=== PATIENT | female | born 1940 | race Caucasian/White ===

== ENCOUNTER 2016-07-17 17:15 | Observation (INO) | payer OTHER ==
--- NOTE | ~2016-07-17 | HP ---
History And Physical [place] [id number] [facility] [place]. [address] NAME: DAVID RAMOS : 40 STATUS : ADM [place] PAT#: [id number] AGE: 75 ADM/REG DATE : 07/17/16 MR#: [id number] REPORT SERV DATE: 07/18/16 DICTATED BY: SHEY HENRIQUEZ DATE: 07/18/16 REPORT STATUS : Draft TRANSCRIBED BY: STEPH DATE: 07/18/16 DATE OF ADMISSION: 07/17/2016 ADMIN SECRETARY: Rico Thurston M.D. CHIEF COMPLAINT: Dyspnea and chest pressure, sudden onset. HISTORY OF PRESENT ILLNESS: A very pleasant, 75-year-old, white female with known history of CAD and multiple interventions with PTCA and multiple stents to multiple vessels. The patient most recently underwent a cardiac catheterization for chest pain, 06/[address] Gonzales revealing a focal 50-60% narrowing in the mid LAD at takeoff of prominent septal ply cutter with iFR of 0.93 and FFR of 0.82 to be managed medically with patent stents to her LAD, OM4, and RCA, EF 55% with a 1.5 mm ramus with 75% lesion to be managed medically. EF 55%. The patient states she has recently undergone right lumpectomy chemotherapy and most recently currently undergoing radiation treatments for breast cancer to her right breast. She has 2 radiation treatments scheduled for Tuesday and Tuesday of next week. She reports that she felt fine after her most recent treatment on Tuesday although she reports that she thinks her radiation treatments were longer and more intense than usual. On 07/17 she had a meeting at [facility] around 1000 hours and at 1200 hours she developed chest pressure that radiated up into her throat that was quite intense with significant shortness of breath. She did take one nitroglycerin at the meeting with some improvement and when she returned home, took aspirin and 2 additional nitroglycerin with improvement in her symptoms. She reports some associated nausea and dizziness as well. Denies diaphoresis or belching. She did call EMS. She was transported here. She states that the chest discomfort became progressively worse throughout the day but she was able to sleep last night. She denies receiving Adriamycin for her chemotherapy although she is unclear what other medications she received. She reports shortness of breath and difficulty swallowing. She feels many of these symptoms are dissimilar and more intense than her previous cardiac events. She did read about the side effects with radiation and feels that many of these may be related to her recent treatments. She reports her chest pain as being an 8/10 and remains an 8/10 with a deep breath or any inhalation for exam. Her symptoms were improved with nitroglycerin but not fully relieved. The patient denies any personal history of myocardial infarction, stroke, DVT, or pulmonary embolus. The patient was treated for bronchitis in 06/2016. Denies palpitations. No syncopal episodes. Denies PND, orthopnea. PAST MEDICAL HISTORY: 1. CAD. a. Multiple stents to LAD, RCA, and left circumflex. b. 06/2015 cath with focal 50-60% narrowing in mid LAD at takeoff of prominent septal ply cutter with iFR 0.93 and FFR of 0.82 to be managed medically with patent stents to the mid and distal LAD, OM4, and RCA. 2. Hypertension. History And Physical [address] [address] NAME: DAVID RAMOS : 40 STATUS : ADM [place] PAT#: [id number] AGE: 75 ADM/REG DATE : 07/17/16 MR#: [id number] REPORT SERV DATE: 07/18/16 DICTATED BY: SHEY HENRIQUEZ DATE: 07/18/16 REPORT STATUS : Draft TRANSCRIBED BY: STEPH DATE: 07/18/16 3. Dyslipidemia. 4. Anxiety. 5. Right breast cancer, status post right lumpectomy, chemotherapy, currently undergoing radiation therapy. 6. Positive family history for early CAD. PAST SURGICAL HISTORY: 1. Right lumpectomy. 2. Left hand surgery. 3. Hysterectomy. 4. Tonsillectomy. 5. Cataract surgery. SOCIAL HISTORY: She is . 07/2014. She has three children. She is retired, has not been as active given her recent diagnosis of breast cancer and with subsequent treatment. Denies history of tobacco, alcohol or illicit's. FAMILY HISTORY: Father at the age of 38 of a heart attack. Mother of a ruptured aortic aneurysm at 67. Brother with heart attack at 60, in his 70s of cancer. REVIEW OF SYSTEMS: A 14-point review of systems performed, significant for HPI including multiple bruises and eschar on right posterior hand. No other contributory diagnoses identified. ALLERGIES: FENTANYL NAUSEA. VERSED NAUSEA. HOME MEDICATIONS: Xanax 0.25 mg daily p.r.n., Norvasc 5 mg nightly, Refresh drops, vitamin C 1000 mg daily, aspirin 81 mg daily, atorvastatin 40 mg nightly, vitamin B tablet daily, FiberCon daily, Tums p.r.n., vitamin D3 1000 units daily, Plavix 75 mg daily, CoQ10 100 mg daily, Flonase spray p.r.n., glucosamine chondroitin daily, isosorbide 60 mg daily, acidophilus daily, lisinopril/HCTZ 20/12.5 daily, Mag-Ox 400 mg nightly, melatonin 5 mg nightly, Lopressor 12.5 mg twice daily, nitroglycerin p.r.n., Zoloft 75 mg daily, flaxseed oil 1200 mg daily, melatonin spray topically, vitamin A 8000 units daily. PHYSICAL EXAMINATION: VITAL SIGNS: Blood pressure 141/57, pulse 96, respirations 17, temperature 98.8, O2 saturation 95% on room air, height 5 feet 2 inches, weight 122 pounds, BMI 22. GENERAL: Cooperative, in no apparent distress. HEENT: Pupils 2 mm, sclera nonicteric. Nares patent. Moist mucous membranes. No xanthelasma. NECK: Trachea midline, no thyromegaly. No JVD. No bruits. LYMPH: No cervical lymphadenopathy. No supraclavicular lymphadenopathy. RESPIRATORY: Unlabored respirations. Breath sounds clear bilaterally to posterior auscultation. No wheezes or rhonchi. 8/10 chest pain with deep inspiration. CARDIOVASCULAR: Regular rate. No murmur, rub or gallop appreciated. Extremities without edema. Pulses 2+ bilaterally. ABDOMEN: Soft, nontender, nondistended, normal bowel sounds auscultated throughout. No History And Physical [address] [address] NAME: DAVID RAMOS : 40 STATUS : ADM [place] PAT#: [id number] AGE: 75 ADM/REG DATE : 07/17/16 MR#: [id number] REPORT SERV DATE: 07/18/16 DICTATED BY: SHEY HENRIQUEZ DATE: 07/18/16 REPORT STATUS : Draft TRANSCRIBED BY: STEPH DATE: 07/18/16 organomegaly. SKIN: Warm, dry extremities. No pallor, or cyanosis. PSYCHIATRIC: Appropriate affect. Alert, oriented x3. LABORATORY DATA: Troponin less than 0.02 twice. Potassium 3.9, BUN 23, creatinine 0.70, glucose 99, magnesium 2.3. WBC 7.3, hemoglobin 13.1, hematocrit 38.9, platelet count 155,000. EKG, sinus rhythm with nonspecific ST segments. Echo, 02/2016: EF 64%. Mild diastolic dysfunction. Cath 06/2015 ([facility]): Focal narrowing 50-60% in LAD at large septal ply cutter with iFR of 0.93 and FFR of 0.82 with patent stents to LAD, OM-4 and RCA, EF 55%. ASSESSMENT AND PLAN: 1. Chest pressure in patient with multiple risk factors. Recent breast cancer and off Plavix for lumpectomy. Patient has been observed in the CPOU. Two sets of troponin negative. EKG stable. Patient will be held n.p.o. for probable MPI versus cath in the morning. We will discuss with rounding physician. She reports her symptoms are dissimilar to previous cardiac events. Further recommendations forthcoming. 2. Shortness of breath and chest pain. Check a CTA of chest given recent breast cancer history and echocardiogram in the morning. 3. Coronary artery disease. Continue home medications. 4. Hypertension. Monitor blood pressure. Continue home medications. 5. Dyslipidemia. Continue statin. 6. Upcoming trip for wedding in [facility] in one to two weeks if patient discharged from hospital. The patient was encouraged to remain well hydrated and remain active during plane flight and activities in [facility]. HILARIA/STEPH LA Tapai, HUMAN RESOURCES GENERALIST-BC / [id number] CC: LA Tapia, HUMAN RESOURCES GENERALIST-BC Sonia Cardenas Jr., M.D.
[2016-07-17 15:52] LABS: BASOPHILS 0.1 %; BASOPHILS ABSOLUTE 0.01 10/3/uL (0.0-0.16); EOSINOPHILS 1.5 %; EOSINOPHILS ABSOLUTE 0.11 10/3/uL (0.0-0.53); HEMOGLOBIN 13.1 g/dL (12.0-16.0); IMMATURE GRANULOCYTES 0.1 %; IMMATURE GRANULOCYTES ABSOLUTE 0.01 10/3/uL (0.0-0.11); LYMPHOCYTES 6.6 %; LYMPHOCYTES ABSOLUTE 0.48 10/3/uL (0.67-4.30); MEAN CORPUS HGB CONC 33.7 g/dL (32.0-36.0); MEAN CORPUSCULAR HEMOGLOB 30.3 pg (26.0-34.0); MEAN CORPUSCULAR VOLUME 89.8 fL (80-100); MEAN PLATELET VOLUME 11.6 fL (9.2-13.0); MONOCYTES 5.6 %; MONOCYTES ABSOLUTE 0.41 10/3/uL (0.21-1.20); NEUTROPHILS 86.1 %; NEUTROPHILS ABSOLUTE 6.24 10/3/uL (2.02-8.40); PLATELET COUNT 155 10/3/uL (150-400); RED CELL COUNT 4.33 10/6/uL (4.0-5.6)
[2016-07-17 15:53] LABS: HEMATOCRIT 38.9 % (36.0-48.0); RBC DISTRIBUTION WIDTH 13.1 % (12.0-16.0); WHITE BLOOD CELLS 7.3 10/3/uL (4.5-10.5)
[2016-07-17 15:54] LABS: MANUAL DIFF NO %
[2016-07-17 16:01] LABS: PROTIME (NOT ORD) 13.4 SEC (12.0-14.5)
[2016-07-17 16:14] LABS: CALCIUM, SERUM 9.1 MG/DL (8.5-10.4); CHEST PAIN PROFILE TAT 0 Hrs 27 Mins; CHLORIDE, SERUM 106 MMOL/L (96-112); CO2 (CARBON DIOXIDE) 26 MMOL/L (24-34); GFR AFRICAN AMERICAN 98 ML/MIN (>=60); GFR NON AFRICAN AMERICAN 85 ML/MIN (>=60); GLUCOSE, SERUM 99 MG/DL (60-99); POTASSIUM, SERUM 3.9 MMOL/L (3.5-5.3); SODIUM, SERUM 142 MMOL/L (135-148); TROPONIN I <0.02 NG/ML (<0.05)
[2016-07-17 16:15] LABS: BUN (BLOOD UREA NITROGEN) 23 MG/DL (6-23)
[~2016-07-17 17:15] MED LIST: ACIDOPHILU1 PO; ACIDOPHILU2 PO; ASAB PO; BL FLAX SEED1000 MG PO; CALGLUCTAB PO; CO Q-10100 MG PO; COQ10100 MG PO; COSAMIN DS1 TAB PO; FIBERCON PO; FLAXSEED OIL PO; FLONASE NAS; FOLIC ACID PO; GLUCCHONDR PO; HAWTHORN BERRY PO; IMDUR60 PO; ISMO20 MG PO; LIPITOR40 PO; LOP25 PO; MAGNESIUM W/ZINC PO; MAGOX4 PO; MELATONIN TOP; MELATONIN1 M1 PO; MELATONIN5 M1 PO; NIACIN 500 PO; NITROQUICK0.4 MG SL; NITROSTAT0.4 MG SL; NORV5 PO; PLAVIX PO; POT GLUCONAT595 M1 PO; PRINZIDE1 TA1 PO; PROBIOTIC; REFRESH OPH; ST. JOHN'S300 MG PO; SUPER B COMP PO; SUPER K PO; TEARS NATURA OPH; TRIAMCINOLON0.13 TOP; TUMSROLL PO; VALERIAN ROOT PO; VALTREX1 GM PO; VITAMIN A PO; VITAMIN A8000 UNIT PO; VITAMIN B PO; VITAMIN C PO; VITAMIN D3 PO; VITAMIN D31000 UNIT PO; VITAMIN D400 UNI1 PO; VITAMIN K PO; VITC500 PO; X25 PO; ZESTORETIC PO; ZESTORETIC1 TAB PO; ZOCOR20 PO; ZOL50 PO; ZOLOFT25 MG PO; [UNRECOGNIZED DRUG - MIXTURE]; [UNRECOGNIZED DRUG - OTHER] PO
[2016-07-20 04:18] LABS: BASOPHILS 0.2 %; BASOPHILS ABSOLUTE 0.01 10/3/uL (0.0-0.16); EOSINOPHILS 2.6 %; EOSINOPHILS ABSOLUTE 0.16 10/3/uL (0.0-0.53); HEMATOCRIT 35.6 % (36.0-48.0); HEMOGLOBIN 11.9 g/dL (12.0-16.0); IMMATURE GRANULOCYTES 0.3 %; IMMATURE GRANULOCYTES ABSOLUTE 0.02 10/3/uL (0.0-0.11); LYMPHOCYTES 7.4 %; LYMPHOCYTES ABSOLUTE 0.46 10/3/uL (0.67-4.30); MEAN CORPUS HGB CONC 33.4 g/dL (32.0-36.0); MEAN CORPUSCULAR HEMOGLOB 29.7 pg (26.0-34.0); MEAN CORPUSCULAR VOLUME 88.8 fL (80-100); MEAN PLATELET VOLUME 12.1 fL (9.2-13.0); MONOCYTES 10.7 %; MONOCYTES ABSOLUTE 0.67 10/3/uL (0.21-1.20); NEUTROPHILS 78.8 %; NEUTROPHILS ABSOLUTE 4.93 10/3/uL (2.02-8.40); PLATELET COUNT 147 10/3/uL (150-400); RBC DISTRIBUTION WIDTH 13.3 % (12.0-16.0); RED CELL COUNT 4.01 10/6/uL (4.0-5.6); WHITE BLOOD CELLS 6.3 10/3/uL (4.5-10.5)
[2016-07-20 04:20] LABS: MANUAL DIFF NO %
[2016-07-20 04:38] LABS: CALCIUM, SERUM 8.6 MG/DL (8.5-10.4); CHLORIDE, SERUM 106 MMOL/L (96-112); CHOL/HDL RATIO(NOT ORDER) 2.2 (0-5); CHOLESTEROL 132 MG/DL (< 200); CO2 (CARBON DIOXIDE) 27 MMOL/L (24-34); CREATININE 0.73 MG/DL (0.55-1.02); GFR AFRICAN AMERICAN 93 ML/MIN (>=60); GFR NON AFRICAN AMERICAN 81 ML/MIN (>=60); GLUCOSE, SERUM 108 MG/DL (60-99); HDL CHOLESTEROL 60 MG/DL (> 49); LDL CHOLESTEROL 51 MG/DL (< 130); NON-HDL CHOLESTEROL 72 MG/DL (< 160); POTASSIUM, SERUM 3.5 MMOL/L (3.5-5.3); SODIUM, SERUM 142 MMOL/L (135-148)
[2016-07-20 04:57] LABS: BUN (BLOOD UREA NITROGEN) 14 MG/DL (6-23); TRIGLYCERIDE 105 MG/DL (< 150)
[2016-08-26] MEDS ORDERED: ULTRAM50 PO (10:47)
[2016-09-01] MEDS ORDERED: ULTRAM50 PO (17:37)
== END 2016-07-20 19:21 | disposition home or self-care (01) ==
LOC: ER 17:15 → CDU2 17:36
PROVIDERS: Emergency Medicine; Nurse Practitioner
DX: I25.110 Atherosclerotic heart disease of native coronary artery with unstable angina pectoris (principal); I10 Essential (primary) hypertension; E78.5 Hyperlipidemia, unspecified; F41.9 Anxiety disorder, unspecified; E78.00 Pure hypercholesterolemia, unspecified; M81.0 Age-related osteoporosis without current pathological fracture; Z85.3 Personal history of malignant neoplasm of breast; Z82.49 Family history of ischemic heart disease and other diseases of the circulatory system; Z90.710 Acquired absence of both cervix and uterus; Z90.89 Acquired absence of other organs; Z98.890 Other specified postprocedural states; Z79.52 Long term (current) use of systemic steroids; Z79.02 Long term (current) use of antithrombotics/antiplatelets; Z79.899 Other long term (current) drug therapy; Z88.8 Allergy status to other drugs, medicaments and biological substances
CPT/HCPCS: 71010; 71275; 78452; 80048; 80061; 83735; 84484; 85025; 85610; 85730; 93005; 93017; 93306; 93458; 93571; 96374; 96375; 96376; 99152; 99153; 99285; A9270-GY; A9502; C1769; C1887; C1894; G0378; J0153; J2250; J2405; J3010; Q9967

== ENCOUNTER 2016-08-12 12:32 | Inpatient (IN) | payer OTHER ==
--- NOTE | ~2016-08-12 | IDS ---
Interim Discharge Summary [facility] [address] [place]. [address] NAME: DAVID RAMOS : 40 STATUS : ADM IN [facility]#: [id number] AGE: 75 ADM/REG DATE : 08/12/16 MR#: [id number] REPORT SERV DATE: 08/16/16 DICTATED BY: OLIMPIA BLACK DATE: 08/16/16 REPORT STATUS : Draft TRANSCRIBED BY: STEPH DATE: 08/16/16 ADMISSION DATE: 08/12/2016 DISCHARGE DATE: Total days of service provided from 08/12/2016 to 08/16/2016. CURRENT MEDICAL PROBLEMS: 1. Large pericardial effusion with pre-tamponade physiology status post pericardial window placement with drainage of pericardial effusion status post pericardial biopsy. 2. Status post bronchoscopy, left tube thoracoscopy, and intercostal nerve block. All done per Dr. Young on 08/13/2016. 3. Left-sided pleural effusion, needs thoracentesis, order per Dr. Young with cytology pleural fluid studies. 4. 6 to 7 second pauses on the telemetry strip during vomiting episodes. Evaluated by Dr. Martinez. Needs pacemaker placement today. 5. Recent diagnosis of right-sided breast cancer status post lumpectomy status post chemotherapy, and recent radiation therapy per Dr. Villegas. Oncologist is Dr. Knott. 6. T4 and T10 small spinal lesions likely hemangioma or sclerotic, discussed with radiologist Dr. Lancaster recommended bone scan could be done outpatient in face of breast cancer. Needs a bone scan and further evaluation per oncologist, discussed with the family. 7. Acute kidney injury present on admission, resolved. Avoid nonsteroidal antiinflammatories. 8. History of coronary artery disease in the past with a history of cardiac stents, asymptomatic. CONSULTANTS ON THE CASE: Lending Advisor, Dr. Vega; ibm mainframe systems programmer, Dr. Martinez; and cardiothoracic Surgery Dr. Young. PROCEDURES DONE: 1. On 08/13/2016, bronchoscopy, subxiphoid pericardial window, pericardial biopsy, left tube thoracoscopy, and intercostal nerve block. 2. Imaging studies done on the day of hospitalization on 08/12/2016, CT with contrast showed interval development of large pericardial effusion with enhancing pericardium, this may represent an exudative effusion or suppurative pericarditis, interval development of moderate right and small left free flowing pleural effusion with worsening bibasilar atelectasis. No evidence of interstitial edema. Continue cystic masses in the right breast and right axilla. Potentially postoperative in nature. 3. Three-vessel coronary atherosclerotic disease and stenting. 4. T10 vertebral body hemangioma and stable heterogeneous sclerotic lesion involving the posterior right aspect of T4 vertebral body, also possibly hemangioma. If there is clinical concern for osseous metastasis, then followup bone scan might be considered. 5. Chest x-ray done on 08/16/2016 showed minimal right apical pneumothorax. Right chest tube remains in place. Left pleural fluid and bibasilar consolidation, minimal right bibasilar fluid and atelectasis. 6. Echocardiogram done on 08/12/2016 showed large pericardial effusion, fibrinous in Interim Discharge Summary [address] [place]. [address] NAME: DAVID RAMOS : 40 STATUS : ADM IN [facility]#: [id number] AGE: 75 ADM/REG DATE : 08/12/16 MR#: [id number] REPORT SERV DATE: 08/16/16 DICTATED BY: OLIMPIA BLACK DATE: 08/16/16 REPORT STATUS : Draft TRANSCRIBED BY: STEPH DATE: 08/16/16 nature. HISTORY OF PRESENT ILLNESS: Briefly, this is a very pleasant 75-year-old female, who was admitted by me as a direct admission from Dr. Corbin's office because she had shortness of breath and inspiratory chest pain for several days after she flies back to [facility], and she basically was sent by Dr. Corbin to have CT with contrast. She was found to have large PE pericardial effusion and Dr. Corbin asked me to admit her. I admitted the patient and immediately called office helper Dr. Vega for further evaluation of pericardial effusion, and also an urgent echocardiogram, which was done, and she was found to have large pericardial effusion with pre-tamponade physiology. She had pericardial window placement next morning, and she was stable, although she is very sensitive to oral narcotics, and on 08/13/2016, she had episodes of nausea and vomiting secondary to pain medications, and she had pauses up to 7 seconds on her telemetry strip. After narcotic pain medications were discontinued, the patient's telemetry normalized. The patient was stable. Her pain has improved. It was controlled by Tylenol. The patient was seen by Dr. Vega, office helper this morning, who consulted ibm mainframe systems programmer Dr. Martinez to evaluate if the patient needs pacemaker placement. Dr. Martinez in his evaluation recommended the patient to have a pacemaker placement today, and so she will have a pacemaker placement. In the same time, Cardiothoracic surgeon, Dr. Young wanted the patient to have thoracentesis for her left- sided pleural effusion. It will most likely to be done after pacemaker placement or tomorrow morning. Regarding her T4 and T10 small lesions, I discussed with the patient, and I discussed with her daughter. They need a bone scan to be done. Most likely, outpatient for further evaluation of these lesions to make sure they are not cancerous, and this should be done per Dr. Corbin, and oncologist Dr. Knott. I discussed regarding bone scan with radiologist Dr. Lancaster. He recommended to do a bone scan on this patient, and further evaluation to make sure these two lesions on the level of T4 vertebrae and T10 are not cancerous. Related to narcotic pain medications, the patient is intolerant of high doses of pain medications. Even on small doses, she can develop nausea and vomiting. Donna, Nurse Practitioner of Dr. Young prescribed Nucynta narcotic pain medication. The patient is willing to try. She was told by me that if she will have nausea and vomiting, she needs immediately to stop this medicine. On admission, the patient had acute kidney injury, which was related to high-dose nonsteroidal antiinflammatory use. I recommended the patient to avoid nonsteroid antiinflammatories. Her kidney function has completely normalized, and her creatinine is 0.57 today. Overall, she is stable. My partner will see this patient starting tomorrow morning. I am also giving the patient a note for her to present it to the court since she has to attend court, but she is unable because she is hospitalized and sick. The patient asked me to list all of her medical problems on this note for the court to be able to give her excuse. My partner Dr. Martin will see this patient starting tomorrow morning. Interim Discharge Summary [address] [place]. [address] NAME: DAVID RAMOS : 40 STATUS : ADM IN [facility]#: [id number] AGE: 75 ADM/REG DATE : 08/12/16 MR#: [id number] REPORT SERV DATE: 08/16/16 DICTATED BY: OLIMPIA BLACK DATE: 08/16/16 REPORT STATUS : Draft TRANSCRIBED BY: STEPH DATE: 08/16/16 MG/STEPH Olimpia Black M.D. / [id number] CC: Sonia Enamorado M.D. Derek W Holland, M.D. Mark Thel, M.D.
--- NOTE | ~2016-08-12 | HP ---
History And Physical [facility] [address] [facility]. [address] NAME: DAVID RAMOS : 40 STATUS : ADM IN [facility]#: [id number] AGE: 75 ADM/REG DATE : 08/12/16 MR#: [id number] REPORT SERV DATE: 08/12/16 DICTATED BY: OLIMPIA BLACK DATE: 08/12/16 REPORT STATUS : Draft TRANSCRIBED BY: MODSara DATE: 08/12/16 DATE OF ADMISSION: 08/12/2016 HISTORY OF PRESENT ILLNESS: This is a very pleasant 75-year-old female who was referred as a direct admission by Dr. Corbin, who sent patient to the CT scan to [facility] for shortness of breath. I personally saw the patient at the CT scan in the Radiology because the patient revealed a large pericardial effusion on the CT of the chest as well as she was having shortness of breath for the last days three to four days, and she was unable to walk because of severe shortness of breath as well. She is unable to lay flat, and she also reported severe inspiratory pain for the last three days. She initially started to take ibuprofen 600 mg four times a day and then she even increased to higher dose. It was somehow helping, but then the chest pain became severe. She denies any fever. No rash. No headaches. REVIEW OF SYSTEMS: All 14-point review of system done and negative except what is stated in the history of present illness. PAST MEDICAL HISTORY: Known for coronary artery disease with a history of drug-eluting stents in the past. She said that she had six stents in the past. She had recent coronary arteriography done in 07/2016, which showed clear coronary arteries. She had recent diagnosis of right-sided breast cancer, status post lumpectomy by Dr. Varner. She had chemotherapy and also she had recently radiation therapy done by Dr. Villegas one month ago. She did not have these symptoms and she finished recently her radiation therapy. She denies any history of diabetes. No strokes. No other problems. PAST SURGICAL HISTORY: Includes partial hysterectomy and tonsillectomy. ALLERGIES: SHE SAID THAT SHE MAY BE ALLERGIC TO NARCOTIC PAIN MEDICATIONS, BUT THEN SHE SAID THAT SHE MAY TRY LOW DOSE OF PAIN MEDICATIONS. SHE COULD NOT SPECIFY WHAT TYPE OF REACTION SHE HAD TO PAIN MEDICATIONS. HOME MEDICATIONS: Include Zoloft 75 mg a day, Plavix 75 mg a day, coenzyme Q 100 mg a day, glucosamine chondroitin, calcium carbonate 500 mg a day, Probiotic daily, lisinopril with HCTZ 20/12.5 daily, metoprolol half pill of 25 mg in the morning and 25 mg in the evening, vitamin A 8000 units daily, vitamin B complex daily, vitamin C 1000 mg a day, vitamin D3 1000 mg a day, isosorbide mononitrate 60 mg daily, aspirin 81 mg a day, magnesium 400 mg day, flaxseed 1200 daily, melatonin 5 mg a day, atorvastatin 40 mg a day, amlodipine 5 mg a day. She takes nitroglycerin 0.4 mg as needed and Xanax 0.25 mg as needed. FAMILY HISTORY: Mother from pulmonary embolism after she had aortic aneurysm surgery. Father at a younger age from heart attack. SOCIAL HISTORY: No alcohol. No smoking. No recreational drug use. She is retired. 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 History And Physical [address] [address] NAME: DAVID RAMOS : 40 STATUS : ADM IN [facility]#: [id number] AGE: 75 ADM/REG DATE : 08/12/16 MR#: [id number] REPORT SERV DATE: 08/12/16 DICTATED BY: OLIMPIA BLACK DATE: 08/12/16 REPORT STATUS : Draft TRANSCRIBED BY: STEPH DATE: 08/12/16 PHYSICAL EXAMINATION: GENERAL: Thin female not in acute distress. Resting quietly. VITAL SIGNS: Blood pressure 134/75, heart rate 104, temperature 97.3, respirations 16, and oxygen saturation 96 or room air. HEENT: Head atraumatic, normocephalic. Conjunctivae clear. Pupils are equal and reactive to light and accommodation. Extraocular muscles are intact. NECK: Supple. Trachea is midline. No supraclavicular or cervical lymphadenopathy. LUNGS: Diminished breath sounds bilaterally. Decreased respiratory effort. CARDIOVASCULAR SYSTEM: Regular rate and rhythm. Xgwod-sb-owwajxd impulse, not displaced. ABDOMEN: Soft, nontender, nondistended. Positive normoactive bowel sounds. No organomegaly. EXTREMITIES: No clubbing, cyanosis, or edema. SKIN: Normal color and turgor. PSYCHIATRIC: Normal mood and affect. NEUROLOGIC: Awake, alert, and oriented to time, place, and person. Muscle strength is 5/5 bilaterally in the upper and lower extremities. DIAGNOSTIC STUDIES: CT of the chest with contrast which was done as outpatient showed interval development of large pericardial effusion with enhancing pericardium. This may represent an exudative effusion pericarditis, interval development of moderate right, and small left free flowing pleural effusions with worsening bibasilar atelectasis. No evidence of interstitial edema. Continued cystic masses in the right breast and right axilla, potentially postoperative in nature. Three-vessel coronary artery atherosclerosis with stenting. EKG showed normal sinus rhythm with low QRS voltages, nonspecific T-wave abnormalities. Heart rate of 93. ASSESSMENT AND PLAN: This is a very pleasant 75-year-old female who is admitted as a direct admission for a large pericardial effusion on the CT of the chest. She is symptomatic. She is having shortness of breath on minimal physical exertion as well as severe inspiratory chest pain. We are going to admit her to telemetry bed since her blood pressure is in the stable range. I spoke with security rover, , who saw the patient and he is going to do echocardiogram tonight to see if she has any tamponade physiology as well as I am going to check her basic metabolic panel since she used recently high dose of nonsteroidal antiinflammatory, I want to be sure she does not have abnormal kidney function. We will give her reasonable pain control. We will check her troponin and we will check her blood cultures and we will monitor her closely. I will follow up on the results of the blood work today. Imaging was discussed with security rover, . MG/MODL History And Physical [address] [facility] [place]. [address] NAME: DAVID RAMOS : 40 STATUS : ADM IN PAT#: [id number] AGE: 75 ADM/REG DATE : 08/12/16 MR#: [id number] REPORT SERV DATE: 08/12/16 DICTATED BY: OLIMPIA BLACK DATE: 08/12/16 REPORT STATUS : Draft TRANSCRIBED BY: JENAROL DATE: 08/12/16 Olimpia Black M.D. / [id number] CC: Sonia Enamorado M.D.
--- NOTE | ~2016-08-12 | CN ---
Consultation Report [facility] [address] [place]. [address] NAME: DAVID RAMOS : 40 STATUS : ADM IN PAT#: [id number] AGE: 75 ADM/REG DATE : 08/12/16 MR#: [id number] REPORT SERV DATE: 08/13/16 DICTATED BY: YIN YOUNG JR. DATE: 08/13/16 REPORT STATUS : Draft TRANSCRIBED BY: MODSara DATE: 08/13/16 CONSULTATION HISTORY AND PHYSICAL DATE OF CONSULTATION: 08/12/2016 BRIEF HISTORY: This is a 75-year-old white female, who presented to her primary care physician with shortness of breath. She is status post right lumpectomy and recently completed radiation therapy for breast cancer. She had gone to the [facility] and described at that time that she progressively became fatigued and short of breath. Upon return to the [facility], she presented to her primary care physician and was sent to [facility] for further evaluation including a CT of the chest, which demonstrated a small left pleural effusion, a moderate right pleural effusion, and a moderate sized circumferential pericardial effusion. She demonstrates no signs of tamponade physiology and we are asked to see the patient in consultation for pericardial window. PAST MEDICAL HISTORY: Significant for coronary artery disease, status post drug-eluting stent, for which she is on Plavix, her last dose was yesterday evening. Also, is significant for the above-mentioned breast cancer, status post right lumpectomy with chemotherapy and radiation therapy. PAST SURGICAL HISTORY: Significant for hysterectomy and tonsillectomy. SOCIAL HISTORY: The patient denies any alcohol or illicit drug use. She is a lifelong nonsmoker. ALLERGIES: TO MEDICATIONS AND INTOLERANCE TO NARCOTIC PAIN MEDICATIONS. FAMILY HISTORY: Significant for mother who from complications from pulmonary embolism and father with a history of myocardial infarction. HOME MEDICATIONS: Include Zoloft, Plavix, Coenzyme Q10, glucosamine and chondroitin, calcium carbonate, probiotic, lisinopril, metoprolol, vitamin A, vitamin B complex, vitamin C, vitamin D3, Imdur, aspirin, magnesium, flaxseed, melatonin, atorvastatin, amlodipine, and nitroglycerin as needed. REVIEW OF SYSTEMS: Significant for shortness of breath, fatigue, and chest pressure. A complete 12-point review of system was performed. All other systems negative except for above-mentioned pertinent positives in the history of present illness. PHYSICAL EXAMINATION: GENERAL: A 75-year-old white female, who is alert, oriented, in no acute distress. VITAL SIGNS: Blood pressure 132/62, oxygen saturation 95% on room air, heart rate 100, weight 56 kg, height 5 feet 2 inches. Consultation Report [place] [address]. [address] NAME: DAVID RAMOS : 40 STATUS : ADM IN [facility]#: [id number] AGE: 75 ADM/REG DATE : 08/12/16 MR#: [id number] REPORT SERV DATE: 08/13/16 DICTATED BY: YIN YOUNG JR. DATE: 08/13/16 REPORT STATUS : Draft TRANSCRIBED BY: STEPH DATE: 08/13/16 HEENT: Normocephalic, atraumatic. Pupils equal, round, react to light. Ears, nose, and throat without lesions or exudate. NECK: Supple with no lymphadenopathy, JVD, or bruits. Trachea midline. No obvious goiter. CHEST: Symmetrical with no obvious chest wall deformities. CARDIOVASCULAR: Regular rate and rhythm. S1, S2. There is a pericardial rub. RESPIRATORY: Decreased breath sounds bilaterally. ABDOMEN: Soft, nontender, nondistended. Positive bowel sounds in all 4 quadrants. No hepatosplenomegaly. : The patient voids without difficulty. Further examination was deferred. MUSCULOSKELETAL: No obvious kyphosis or scoliosis. PSYCHIATRIC: Normal mood and affect. She is pleasant. SKIN: Warm and dry with normal turgor. No obvious breakdown or lesions noted. There is evidence of previous right lumpectomy. NEUROLOGIC: No focal neurological deficits. DATA: Laboratories dated 08/12/2016, sodium 138, potassium 3.6, BUN 36, creatinine 1.74, glucose 131. White blood cell count 8.7, hemoglobin 11.4, hematocrit 33.9, platelet count 268. CT of the chest dated 08/12/2016 showin. Development of large pericardial effusion with enhancing pericardium, moderate right and small left free-flowing pleural effusions. Continued cystic mass in the right breast and right axilla. 2. 3-vessel coronary artery disease and a T10 vertebral body hemangioma. An echocardiogram, 08/12/2016 showing a large pericardial effusion that appears fibrinous. PROBLEM LIST: 1. Large circumferential pericardial effusion. 2. Bilateral pleural effusions. 3. Coronary artery disease, status post stenting. 4. History of breast cancer, treated with right lobectomy and chemo and radiation. 5. History of depression and anxiety. IMPRESSION AND PLAN: This is a 75-year-old white female, who has a large circumferential pericardial effusion with no signs of tamponade. She took her Plavix yesterday evening. We will go ahead and get a TEG and proceed on with a subxiphoid pericardial window in the morning. We will make her n.p.o. after midnight. We will also place a right sided chest tube given that she has a moderate right pleural effusion. We will send off fluid for cultures and cytology. If her TEG is significantly inhibited, then we will give her platelets prior to surgery. I discussed the details of the operation with the patient. She verbalized understanding and is willing to proceed. DICTATED BY: Donna Woo NP Consultation Report [address] [address] NAME: DAVID RAMOS : 40 STATUS : ADM IN [facility]#: [id number] AGE: 75 ADM/REG DATE : 08/12/16 MR#: [id number] REPORT SERV DATE: 08/13/16 DICTATED BY: YIN YOUNG JR. DATE: 08/13/16 REPORT STATUS : Draft TRANSCRIBED BY: STEPH DATE: 08/13/16 AM/STEPH Yin Young Jr., M.D. / [id number] CC: Sonia Enamorado M.D.
--- NOTE | ~2016-08-12 | CN ---
Consultation Report [facility] [address] [place]. [address] NAME: MARGARITA FOX : 40 STATUS : ADM IN [facility]#: [id number] AGE: 75 ADM/REG DATE : 08/12/16 MR#: [id number] REPORT SERV DATE: 08/16/16 DICTATED BY: JIM MARTINEZ DATE: 08/16/16 REPORT STATUS : Draft TRANSCRIBED BY: MODSara DATE: 08/16/16 ELECTROPHYSIOLOGY CONSULTATION DATE OF CONSULTATION: INDICATIONS: Complete AV block. HISTORY OF PRESENT ILLNESS: Margarita Fox is a very pleasant 75-year-old female who was admitted on the 08/12/2016. She underwent coronary arteriography that showed no obstructive CAD, but was found to have a large pericardial effusion with evidence of tamponade. She underwent pericardial drain by Dr. Young. She planned got left thoracentesis later today. She has a history of breast cancer. She has been followed by Oncology. Per notes. She also has a history of stenting in the past. Tuesday morning, 08/14/2016, beginning between 8:57 a.m. and 10:22 a.m., she had numerous periods of complete AV block with asystole episodes lasting up to greater than seven seconds. She was apparently vomiting during some of these spells. On discussion with the patient and the daughter, she has had episodes of syncope in the past as well as traumatic lightheadedness associated with vomiting. Currently, she is without complaints of chest pain or shortness of breath, and her pericardial drain has been removed. PAST MEDICAL HISTORY: Breast cancer, apparent history of CAD and possible stents, hypertension, and dyslipidemia. ALLERGIES: ADVERSE REACTION WITH NAUSEA AND VOMITING TO STRONG ORAL PAIN MEDICATIONS. PRESENT MEDICATIONS: Vitamin C, Lipitor, Dulcolax, vitamin D, and coenzyme Q10, prophylaxis dose Lovenox, glucosamine, magnesium oxide, melatonin, Protonix, MiraLAX, Florastor, Zoloft, Stresstabs, , and vitamin A. SOCIAL HISTORY: No present smoking. FAMILY HISTORY: Reviewed and noncontributory to present issue. REVIEW OF SYSTEMS: As per the HPI. Otherwise, all review of systems negative. PHYSICAL EXAMINATION: VITAL SIGNS: Blood pressure /58, pulse is 109 and sinus tachycardia, and respiratory rate 18. GENERAL: Appears stated age, no distress. EYES: Sclerae anicteric, no arcus senilis. Consultation Report [facility] [place] [id number] [place]. [address] NAME: MARGARITA FOX : 40 STATUS : ADM IN PAT#: [id number] AGE: 75 ADM/REG DATE : 08/12/16 MR#: [id number] REPORT SERV DATE: 08/16/16 DICTATED BY: JIM MARTINEZ DATE: 08/16/16 REPORT STATUS : Draft TRANSCRIBED BY: STEPH DATE: 08/16/16 MOUTH: Oral mucosa moist, lips acyanotic. NECK: Jugular venous pressure normal, no carotid bruits. LUNGS: Diminished breath sounds, bilateral bases. CARDIAC: Regular rate and rhythm, no murmurs, gallops or rubs. ABDOMEN: Soft, nondistended, nontender. EXTREMITIES: No edema. SKIN: Warm and dry. NEURO/PSYCH: Alert and oriented, nonfocal, mood appropriate. DATA: Sodium 142, potassium 3.9, creatinine 0.5. Hemoglobin is 10.7. Troponin on 08/12/2016 was negative. BNP 130. TSH 1. Telemetry is currently sinus rhythm , otherwise as described above. Electrocardiogram from 08/12/2016 is sinus rhythm at 93 beats per minute, low voltage. IMPRESSIONS: 1. Complete AV block during the episode of vomiting associated with severe dizziness. The patient had similar present episodes in the past as well as episodes of syncope. 2. Breast cancer. 3. Pericardial effusion. RECOMMENDATIONS: I have discussed situation at length with the patient and the daughter. I feel she is at risk for injury related to her prolonged periods of AV block even though it is occurring while she is vomiting. I am concerned possibly of loss of consciousness with other GI upset issues and risk of head injury or hip fracture. I have discussed this with her in depth, and I have addressed with her and her daughter the rationale, logistics, and risks. Risks include, but not limited to bleeding, infection, vascular complications, failure to place lead, lead dislodgement, or pneumothorax. All questions answered. Plan to proceed later today. GKB/MODL Jim Martinez M.D. / [id number] CC: Sonia Enamorado M.D.
--- NOTE | ~2016-08-12 | PRECARD ---
H&P [facility] [address] [place]. [address] NAME: MARGARITA FOX : 40 STATUS : ADM IN [facility]#: [id number] AGE: 75 ADM/REG DATE : 08/12/16 MR#: [id number] REPORT SERV DATE: 08/12/16 DICTATED BY: BOBBY VEGA DATE: 08/12/16 REPORT STATUS : Draft TRANSCRIBED BY: STEPH DATE: 08/12/16 DATE OF ADMISSION: 08/12/2016 HISTORY: Ms. Margarita Fox is a 75-year-old woman with a history of breast cancer. Cardiology was consulted for a CT scan that demonstrated a large pericardial effusion. Ms. Fox has a history of breast cancer. She has undergone a right mastectomy, radiation therapy and chemotherapy. She has known coronary artery disease. Cardiac catheterization in 07/2016 demonstrates normal left ventricle function. She had mild mitral regurgitation. She had no obstructive coronary artery disease. She had multiple widely patent stents. She now has three days of increasing chest discomfort, orthopnea/PND, with decreased exercise tolerance. She describes chest discomfort, which is exacerbated by deep inspiration or lying supine. She is lightheaded, and has dizziness while walking. PAST MEDICAL HISTORY: Coronary artery disease, hyperlipidemia, hypertension, and breast cancer. MEDICINES: Include aspirin and clopidogrel. She is not on anticoagulant. SOCIAL HISTORY: No tobacco or alcohol. FAMILY HISTORY: No premature coronary artery disease. REVIEW OF SYSTEMS: A complete review of systems obtained is pertinent negative and remarkable except as noted above and below, all systems addressed. PHYSICAL EXAMINATION: VITAL SIGNS: Pressure is 112/80, pulses paradoxus of 12, heart rate 90. GENERAL: Comfortable, in no acute distress. HEENT: No xanthelasma. Lips without cyanosis. LUNGS: Clear to auscultation. No wheezes, rales or rhonchi. Good breath sounds. COR: No JVD or hepatojugular reflux. No murmurs, rubs or gallops. Impulse mid clavicular line without carotid or abdominal bruits. Normal S1 and S2. ABDOMEN: Bowel sounds positive, normal activity. Without tenderness, masses or hepatosplenomegaly. EXTREMITIES: No edema or cyanosis. SKIN: Normal turgor. MS: Normal muscle strength, without kyphosis/scoliosis. NEURO/PSYCH: Alert and oriented times 4. No apparent anxiety or depression. IMAGING: CT scan: Large pericardial effusion with bilateral pleural effusions. H&P [address] [address] NAME: MARGARITA FOX : 40 STATUS : ADM IN PAT#: [id number] AGE: 75 ADM/REG DATE : 08/12/16 MR#: [id number] REPORT SERV DATE: 08/12/16 DICTATED BY: BOBBY VEGA DATE: 08/12/16 REPORT STATUS : Draft TRANSCRIBED BY: STEPH DATE: 08/12/16 EKG: Sinus rhythm with nonspecific ST-T wave changes. Echocardiogram: Echocardiogram demonstrates a large pericardial effusion, approximately 3.2 cm. There appears to me to be a right atrial and right ventricular collapse of mitral valve inflow variation consistent with cardiac tamponade. She does not have hemodynamic evidence of tamponade. She is not tachycardic. Her pulses paradoxus is 12. She is not hypotensive. The echo is more concerning for the hemodynamic consequences of this large effusion. We will keep n.p.o. and we will discuss with Thoracic Surgery, pericardial window and drainage of the pleural effusions. PANFILO/STEPH Bobby Vega M.D. / [id number] CC: Sonia Enamorado M.D.
--- NOTE | ~2016-08-12 | OP ---
Record Of Operation [facility] [address] [place]. [address] NAME: DAVID RAMOS : 40 STATUS : ADM IN [facility]#: [id number] AGE: 75 ADM/REG DATE : 08/12/16 MR#: [id number] REPORT SERV DATE: 08/13/16 DICTATED BY: YIN YOUNG JR. DATE: 08/13/16 REPORT STATUS : Draft TRANSCRIBED BY: STEPH DATE: 08/13/16 DATE OF PROCEDURE: 08/13/2016 PREOPERATIVE DIAGNOSIS: Right breast cancer status post lumpectomy with radiation, coronary artery disease, hypertension, depression, pericardial effusion with pre-tamponade physiology, and moderate right pleural effusion. POSTOPERATIVE DIAGNOSES: Right breast cancer status post lumpectomy with radiation, coronary artery disease, hypertension, depression, pericardial effusion with pre-tamponade physiology, and moderate right pleural effusion. NAME OF OPERATION: Bronchoscopy, subxiphoid pericardial window, pericardial biopsy, left tube thoracostomy, and intercostal nerve block. SURGEON: Yin Young M.D. RESIDENT SURGEON: Dr. Efraín Price. ANESTHESIA: General endotracheal. FINDINGS: On transesophageal echocardiogram, we saw a loculated chronic effusion with fibrinous debris. There was also a large pleural effusion on the right side. Small effusion on the left side. On bronchoscopy, there were no endobronchial lesions. Mucous secretions were evacuated. There was no contraindication proceeding on with surgery. At the time of surgery, there was a serosanguineous effusion with loculations and a lot of chronic changes to the epicardial surface of the heart. It seemed to be more of a subacute or chronic process as opposed to an acute process. Approximately 300 mL of serosanguineous fluid was evacuated. The chest had more of a serous fluid that was evacuated and this was about 1500 mL that were removed. The pleural fluid was sent for cytology. The pericardial fluid was sent for cultures and cytology. The pericardium was sent for pathology. Final pathology is pending. DETAILS OF OPERATION: After adequate general anesthesia, the patient was intubated. Bronchoscopy was performed noting no endobronchial lesions. There was no contraindication to proceeding on with surgery. Mucous secretions were evacuated. A transesophageal echocardiogram was performed, confirming the pericardial effusion but also seeing a lot of loculations with more of the fluid posteriorly. There is some fibrinous debris. We felt we could go ahead in proceeding on with a subxiphoid approach. The chest and abdomen were prepped and draped in a routine sterile fashion. A small incision was made overlying the xiphoid process. Dissection was carried down into the pericardial space. The pericardium was opened. The fluid was evacuated. There were adhesions along the apex. We got around the adhesions and got to the posterior aspect of the pericardial sac. We could not get far around on the left side. A section of the anterior pericardium was excised. A Gagan drain was placed posteriorly. The fascia was closed with running Vicryl sutures. The skin was closed with running monofilament suture. A Dermabond dressing was applied. A left tube thoracostomy was then placed with immediate return of serous fluid. Intercostal nerve block Record Of Operation [facility] [address] [place]. [address] NAME: DAVID RAMOS : 40 STATUS : ADM IN [facility]#: [id number] AGE: 75 ADM/REG DATE : 08/12/16 MR#: [id number] REPORT SERV DATE: 08/13/16 DICTATED BY: YIN YOUNG JR. DATE: 08/13/16 REPORT STATUS : Draft TRANSCRIBED BY: MODL DATE: 08/13/16 was performed along the left chest as well as the subxiphoid incision. The tubes were secured with silk sutures. The procedure was terminated at this point. The patient tolerated the procedure well and taken back to the recovery room in stable condition. DAVIS/STEPH Yin Young Jr., M.D. / [id number] CC: Sonia Enamorado M.D.
--- NOTE | ~2016-08-12 | DS ---
Discharge Summary [facility] [address] [place]. [address] NAME: DAVID RAMOS : 40 STATUS : DIS IN PAT#: [id number] AGE: 75 ADM/REG DATE : 08/12/16 MR#: [id number] REPORT SERV DATE: 08/18/16 DICTATED BY: BJ BRADY DATE: 08/17/16 REPORT STATUS : Draft TRANSCRIBED BY: MODL DATE: 08/17/16 ADMISSION DATE: 08/12/2016 DISCHARGE DATE: 08/17/2016 DISCHARGE DIAGNOSES: 1. Large pericardial effusion with pre-tamponade physiology, status post pericardial window as well as pericardial biopsy. 2. Status post bronchoscopy, left tube thoracoscopy, and intercostal nerve block by Dr. Young on 08/13/2016. 3. Left-sided pleural effusion, status post thoracentesis with cytology and pleural fluid studies per Dr. Young. 4. Six second pauses on telemetry strip during vomiting episodes, treated to AV block. The patient is now status post pacemaker implantation. 5. Recent diagnosis of right-sided breast cancer, status post lumpectomy as well as chemo and radiation. The patient follows with Dr. Villegas and Dr. Knott. 6. T4 and T10 small spinal lesions which may present hemangioma or sclerosis. The patient will need to have a bone scan as an outpatient. 7. Acute kidney injury, present on admission, resolved. 8. History of coronary artery disease with cardiac stents. HOSPITAL COURSE: Please note that this is a simple addendum to excellent interim discharge summary that was dictated by Dr. Jess Montano. The patient simply stayed overnight after having had pacemaker implantation as well as left-sided thoracentesis. The patient was monitored overnight and was cleared for discharge from Cardiothoracic Surgery as well as Cardiology. The patient is now being discharged home to be followed closely as an outpatient. There is nothing more to add to Dr. Montano's interim discharge summary. DISPOSITION: Home. FOLLOWUP: 1. Please follow up with PCP in the next one to two weeks. 2. Please follow up with Dr. Young as instructed. 3. Please follow up with Cardiology in the next two to three weeks. A total of 40 minutes spent in coordinating this patient's discharge today. Hari/STEPH Bj Brady MD / [id number] CC: Bj Brady MD Discharge Summary [place] [address] [place]. [address] NAME: DAVID RAMOS : 40 STATUS : DIS IN PAT#: [id number] AGE: 75 ADM/REG DATE : 08/12/16 MR#: [id number] REPORT SERV DATE: 08/18/16 DICTATED BY: BJ BRADY DATE: 08/17/16 REPORT STATUS : Draft TRANSCRIBED BY: STEPH DATE: 08/17/16 Robby Corbin M.D.
[2016-08-12] MEDS ORDERED: ADVIL PO (17:03)
[2016-08-12 17:38] LABS: CHLORIDE, SERUM 103 MMOL/L (96-112); CO2 (CARBON DIOXIDE) 23 MMOL/L (24-34); POTASSIUM, SERUM 3.6 MMOL/L (3.5-5.3); SODIUM, SERUM 138 MMOL/L (135-148); TROPONIN I <0.02 NG/ML (<0.05)
[2016-08-12 17:39] LABS: BUN (BLOOD UREA NITROGEN) 36 MG/DL (6-23); CREATININE 1.74 MG/DL (0.55-1.02); GFR AFRICAN AMERICAN 33 ML/MIN (>=60); GFR NON AFRICAN AMERICAN 28 ML/MIN (>=60); GLUCOSE, SERUM 131 MG/DL (60-99)
[2016-08-12 20:00] LABS: TEG - ANGLE 76.6 DEG (53-72); TEG - COAGULATION INDEX 3.4 (-3 TO 3); TEG - MAXIMUM AMPLITUDE 75.8 MM (50-70); TEG - RATE 5.3 MIN (5.0-10.0)
[2016-08-12 20:02] LABS: MAX AMP (ADP) 27.5 MM (35-68)
[2016-08-12 21:07] LABS: WBC (NOT ORDERED) (RFLEX) 0 (0-5)
[2016-08-12 21:26] LABS: ASCORBIC ACID (UR NOT ORDER) NEG (NEG); BILIRUBIN, URINE NEGATIVE (NEG); KETONE, URINE NEGATIVE (NEG); LEUKOCYTE ESTERASE(NOT OR NEG (NEG)
[2016-08-13 02:33] LABS: BASOPHILS 0.1 %; BASOPHILS ABSOLUTE 0.01 10/3/uL (0.0-0.16); EOSINOPHILS 0.8 %; EOSINOPHILS ABSOLUTE 0.07 10/3/uL (0.0-0.53); HEMATOCRIT 33.9 % (36.0-48.0); HEMOGLOBIN 11.4 g/dL (12.0-16.0); IMMATURE GRANULOCYTES 0.1 %; IMMATURE GRANULOCYTES ABSOLUTE 0.01 10/3/uL (0.0-0.11); LYMPHOCYTES 4.9 %; LYMPHOCYTES ABSOLUTE 0.43 10/3/uL (0.67-4.30); MANUAL DIFF NO %; MEAN CORPUS HGB CONC 33.6 g/dL (32.0-36.0); MEAN CORPUSCULAR HEMOGLOB 28.5 pg (26.0-34.0); MEAN CORPUSCULAR VOLUME 84.8 fL (80-100); MEAN PLATELET VOLUME 10.3 fL (9.2-13.0); MONOCYTES 7.7 %; MONOCYTES ABSOLUTE 0.67 10/3/uL (0.21-1.20); NEUTROPHILS 86.4 %; NEUTROPHILS ABSOLUTE 7.52 10/3/uL (2.02-8.40); PLATELET COUNT 268 10/3/uL (150-400); RBC DISTRIBUTION WIDTH 14.2 % (12.0-16.0); WHITE BLOOD CELLS 8.7 10/3/uL (4.5-10.5)
[2016-08-13 02:39] LABS: INTERNATIONAL NORMAL RATI 1.3 UNITS (-)
[2016-08-13 02:40] LABS: PROTIME (NOT ORD) 15.7 SEC (12.0-14.5)
[2016-08-13 02:48] LABS: ALBUMIN 2.8 G/DL (3.5-5.0); BUN (BLOOD UREA NITROGEN) 37 MG/DL (6-23); CALCIUM, SERUM 8.6 MG/DL (8.5-10.4); CHLORIDE, SERUM 106 MMOL/L (96-112); CO2 (CARBON DIOXIDE) 25 MMOL/L (24-34); CREATININE 1.56 MG/DL (0.55-1.02); GFR AFRICAN AMERICAN 37 ML/MIN (>=60); GFR NON AFRICAN AMERICAN 32 ML/MIN (>=60); GLUCOSE, SERUM 124 MG/DL (60-99); POTASSIUM, SERUM 3.9 MMOL/L (3.5-5.3); SGOT(AST) 10 U/L (5-40); SGPT(ALT) 26 U/L (5-65); SODIUM, SERUM 143 MMOL/L (135-148); TOTAL PROTEIN 6.8 G/DL (6.0-8.5)
[2016-08-13 02:50] LABS: A/G RATIO 0.7 (0.7-1.9); ALKALINE PHOSPHATASE 161 U/L (45-117); TOTAL BILIRUBIN 0.3 MG/DL (0-1.2)
[2016-08-13 09:15] LABS: BASOPHILS 0.1 %; BASOPHILS ABSOLUTE 0.01 10/3/uL (0.0-0.16); EOSINOPHILS 0.4 %; EOSINOPHILS ABSOLUTE 0.04 10/3/uL (0.0-0.53); IMMATURE GRANULOCYTES 0.3 %; IMMATURE GRANULOCYTES ABSOLUTE 0.03 10/3/uL (0.0-0.11); LYMPHOCYTES ABSOLUTE 0.29 10/3/uL (0.67-4.30); MEAN CORPUS HGB CONC 33.9 g/dL (32.0-36.0); MEAN CORPUSCULAR HEMOGLOB 28.9 pg (26.0-34.0); MEAN CORPUSCULAR VOLUME 85.3 fL (80-100); MEAN PLATELET VOLUME 10.3 fL (9.2-13.0); MONOCYTES 5.1 %; NEUTROPHILS 91.1 %; NEUTROPHILS ABSOLUTE 8.84 10/3/uL (2.02-8.40); PLATELET COUNT 225 10/3/uL (150-400); RBC DISTRIBUTION WIDTH 14.4 % (12.0-16.0); RED CELL COUNT 3.46 10/6/uL (4.0-5.6); WHITE BLOOD CELLS 9.7 10/3/uL (4.5-10.5)
[2016-08-13 09:16] LABS: HEMATOCRIT 29.5 % (36.0-48.0); MANUAL DIFF NO %
[2016-08-13 09:32] LABS: BUN (BLOOD UREA NITROGEN) 33 MG/DL (6-23); CALCIUM, SERUM 8.3 MG/DL (8.5-10.4); CHLORIDE, SERUM 107 MMOL/L (96-112); CO2 (CARBON DIOXIDE) 22 MMOL/L (24-34); CREATININE 1.23 MG/DL (0.55-1.02); GFR AFRICAN AMERICAN 50 ML/MIN (>=60); GFR NON AFRICAN AMERICAN 43 ML/MIN (>=60); GLUCOSE, SERUM 159 MG/DL (60-99); POTASSIUM, SERUM 3.7 MMOL/L (3.5-5.3); SODIUM, SERUM 140 MMOL/L (135-148)
[2016-08-14 05:03] LABS: BASOPHILS 0 %; EOSINOPHILS 0.7 %; EOSINOPHILS ABSOLUTE 0.05 10/3/uL (0.0-0.53); HEMOGLOBIN 10.7 g/dL (12.0-16.0); IMMATURE GRANULOCYTES 0.1 %; IMMATURE GRANULOCYTES ABSOLUTE 0.01 10/3/uL (0.0-0.11); LYMPHOCYTES 6.9 %; LYMPHOCYTES ABSOLUTE 0.51 10/3/uL (0.67-4.30); MEAN CORPUS HGB CONC 32.4 g/dL (32.0-36.0); MEAN CORPUSCULAR HEMOGLOB 28.5 pg (26.0-34.0); MEAN PLATELET VOLUME 10.5 fL (9.2-13.0); MONOCYTES 8.4 %; MONOCYTES ABSOLUTE 0.62 10/3/uL (0.21-1.20); NEUTROPHILS 83.9 %; NEUTROPHILS ABSOLUTE 6.18 10/3/uL (2.02-8.40); PLATELET COUNT 249 10/3/uL (150-400); RBC DISTRIBUTION WIDTH 14.4 % (12.0-16.0); RED CELL COUNT 3.75 10/6/uL (4.0-5.6); WHITE BLOOD CELLS 7.4 10/3/uL (4.5-10.5)
[2016-08-14 05:08] LABS: MANUAL DIFF NO %
[2016-08-14 05:18] LABS: CALCIUM, SERUM 8.8 MG/DL (8.5-10.4); CHLORIDE, SERUM 108 MMOL/L (96-112); CO2 (CARBON DIOXIDE) 24 MMOL/L (24-34); CREATININE 1.02 MG/DL (0.55-1.02); GFR AFRICAN AMERICAN 62 ML/MIN (>=60); GFR NON AFRICAN AMERICAN 54 ML/MIN (>=60); POTASSIUM, SERUM 4.1 MMOL/L (3.5-5.3); SODIUM, SERUM 142 MMOL/L (135-148)
[2016-08-14 05:20] LABS: BUN (BLOOD UREA NITROGEN) 26 MG/DL (6-23); GLUCOSE, SERUM 103 MG/DL (60-99)
[2016-08-15 06:12] LABS: BASOPHILS 0.2 %; BASOPHILS ABSOLUTE 0.01 10/3/uL (0.0-0.16); EOSINOPHILS 2.8 %; EOSINOPHILS ABSOLUTE 0.17 10/3/uL (0.0-0.53); HEMOGLOBIN 10.7 g/dL (12.0-16.0); IMMATURE GRANULOCYTES 0.2 %; IMMATURE GRANULOCYTES ABSOLUTE 0.01 10/3/uL (0.0-0.11); LYMPHOCYTES 12.5 %; LYMPHOCYTES ABSOLUTE 0.75 10/3/uL (0.67-4.30); MEAN CORPUS HGB CONC 31.5 g/dL (32.0-36.0); MEAN CORPUSCULAR HEMOGLOB 28.2 pg (26.0-34.0); MEAN CORPUSCULAR VOLUME 89.5 fL (80-100); MEAN PLATELET VOLUME 10.1 fL (9.2-13.0); MONOCYTES 7.3 %; MONOCYTES ABSOLUTE 0.44 10/3/uL (0.21-1.20); NEUTROPHILS ABSOLUTE 4.62 10/3/uL (2.02-8.40); PLATELET COUNT 295 10/3/uL (150-400); RBC DISTRIBUTION WIDTH 14.2 % (12.0-16.0)
[2016-08-15 06:13] LABS: MANUAL DIFF NO %
[2016-08-15 06:19] LABS: CALCIUM, SERUM 8.4 MG/DL (8.5-10.4); CHLORIDE, SERUM 112 MMOL/L (96-112); CO2 (CARBON DIOXIDE) 27 MMOL/L (24-34); CREATININE 0.74 MG/DL (0.55-1.02); GFR AFRICAN AMERICAN 92 ML/MIN (>=60); GFR NON AFRICAN AMERICAN 79 ML/MIN (>=60); GLUCOSE, SERUM 107 MG/DL (60-99); POTASSIUM, SERUM 4.3 MMOL/L (3.5-5.3); SODIUM, SERUM 145 MMOL/L (135-148)
[2016-08-15 06:27] LABS: BUN (BLOOD UREA NITROGEN) 19 MG/DL (6-23)
[2016-08-16 05:14] LABS: BASOPHILS 0.2 %; BASOPHILS ABSOLUTE 0.01 10/3/uL (0.0-0.16); EOSINOPHILS 2.7 %; EOSINOPHILS ABSOLUTE 0.15 10/3/uL (0.0-0.53); HEMOGLOBIN 10.7 g/dL (12.0-16.0); IMMATURE GRANULOCYTES 0.4 %; IMMATURE GRANULOCYTES ABSOLUTE 0.02 10/3/uL (0.0-0.11); LYMPHOCYTES 11.3 %; LYMPHOCYTES ABSOLUTE 0.63 10/3/uL (0.67-4.30); MEAN CORPUS HGB CONC 32.4 g/dL (32.0-36.0); MEAN CORPUSCULAR HEMOGLOB 28.2 pg (26.0-34.0); MEAN CORPUSCULAR VOLUME 87.1 fL (80-100); MEAN PLATELET VOLUME 9.8 fL (9.2-13.0); MONOCYTES 7.2 %; NEUTROPHILS 78.2 %; NEUTROPHILS ABSOLUTE 4.37 10/3/uL (2.02-8.40); PLATELET COUNT 270 10/3/uL (150-400); RBC DISTRIBUTION WIDTH 14.2 % (12.0-16.0); RED CELL COUNT 3.79 10/6/uL (4.0-5.6); WHITE BLOOD CELLS 5.6 10/3/uL (4.5-10.5)
[2016-08-16 05:18] LABS: MANUAL DIFF NO %
[2016-08-16 05:29] LABS: CALCIUM, SERUM 8.6 MG/DL (8.5-10.4); CHLORIDE, SERUM 108 MMOL/L (96-112); CO2 (CARBON DIOXIDE) 28 MMOL/L (24-34); CREATININE 0.57 MG/DL (0.55-1.02); GFR AFRICAN AMERICAN 105 ML/MIN (>=60); GFR NON AFRICAN AMERICAN 91 ML/MIN (>=60); GLUCOSE, SERUM 111 MG/DL (60-99); POTASSIUM, SERUM 3.9 MMOL/L (3.5-5.3); SODIUM, SERUM 142 MMOL/L (135-148)
[2016-08-16 05:31] LABS: BUN (BLOOD UREA NITROGEN) 11 MG/DL (6-23)
[2016-08-16 09:02] LABS: INTERNATIONAL NORMAL RATI 1.1 UNITS (-); PARTIAL THROMBO TIME 31.1 SEC (22.5-37.2); PROTIME (NOT ORD) 14.3 SEC (12.0-14.5)
[2016-08-26] MEDS ORDERED: ULTRAM50 PO (10:47)
[2016-09-01] MEDS ORDERED: ULTRAM50 PO (17:37)
== END 2016-08-17 14:46 | disposition home or self-care (01) | DRG 271 ==
LOC: CT 12:32 → 5NO 15:53
PROVIDERS: Hospitalist; Nurse Practitioner Acute Care; Thoracic Surgery (Cardiothoracic Vascular Surgery)
PROC: 02BN0ZX Excision of Pericardium, Open Approach, Diagnostic (ICD-10-PCS; 2016-08-13)
PROC: 3E0T3BZ Introduction of Anesthetic Agent into Peripheral Nerves and Plexi, Percutaneous Approach (ICD-10-PCS; 2016-08-13)
PROC: 0W9B00Z Drainage of Left Pleural Cavity with Drainage Device, Open Approach (ICD-10-PCS; 2016-08-13)
PROC: 0W9D0ZZ Drainage of Pericardial Cavity, Open Approach (ICD-10-PCS; 2016-08-13 06:45)
PROC: 0JH606Z Insertion of Pacemaker, Dual Chamber into Chest Subcutaneous Tissue and Fascia, Open Approach (ICD-10-PCS; principal; 2016-08-16)
PROC: 02HL3JZ Insertion of Pacemaker Lead into Left Ventricle, Percutaneous Approach (ICD-10-PCS; 2016-08-16)
PROC: 02H63JZ Insertion of Pacemaker Lead into Right Atrium, Percutaneous Approach (ICD-10-PCS; 2016-08-16)
DX: I31.3 Pericardial effusion (noninflammatory) (principal); J90 Pleural effusion, not elsewhere classified; N17.9 Acute kidney failure, unspecified; I44.2 Atrioventricular block, complete; I34.0 Nonrheumatic mitral (valve) insufficiency; I25.10 Atherosclerotic heart disease of native coronary artery without angina pectoris; E78.5 Hyperlipidemia, unspecified; I10 Essential (primary) hypertension; Z85.3 Personal history of malignant neoplasm of breast; Z90.11 Acquired absence of right breast and nipple; Z98.890 Other specified postprocedural states; Z92.3 Personal history of irradiation; Z92.21 Personal history of antineoplastic chemotherapy; Z79.82 Long term (current) use of aspirin; Z88.8 Allergy status to other drugs, medicaments and biological substances; Z82.49 Family history of ischemic heart disease and other diseases of the circulatory system; Z95.5 Presence of coronary angioplasty implant and graft; Z79.02 Long term (current) use of antithrombotics/antiplatelets; Z79.899 Other long term (current) drug therapy; Z88.5 Allergy status to narcotic agent
CPT/HCPCS: 32555; 33208; 36415; 71010; 71020; 71260; 80048; 80053; 81001; 82962; 83036; 83735; 83880; 84443; 84484; 85025; 85347; 85384; 85576; 85576-59; 85610; 85730; 86850; 86900; 86901; 87015; 87040; 87070; 87075; 87102; 87116; 87205; 88112; 88305; 88341; 88342; 93005; 93308; 93312; 93320; 93321; 93325; 94640; A9270-GY; C1713; C1785; C1892; C1898; C9113; J0330; J0690; J2250; J2270; J2370; J2405; J2550; J2795; J3010; Q9967

== ENCOUNTER 2016-09-02 10:23 | Inpatient (IN) | payer OTHER ==
--- NOTE | ~2016-09-02 | OP ---
Record Of Operation [facility] [address] [place]. [address] NAME: DAVID RAMOS : 40 STATUS : ADM IN [facility]#: [id number] AGE: 75 ADM/REG DATE : 09/02/16 MR#: [id number] REPORT SERV DATE: 09/02/16 DICTATED BY: YIN YOUNG JR. DATE: 09/02/16 REPORT STATUS : Draft TRANSCRIBED BY: MODSara DATE: 09/02/16 DATE OF PROCEDURE: 09/02/2016 PREOPERATIVE DIAGNOSIS: History of breast cancer, status post previous subxiphoid pericardial window and right tube thoracostomy, recurrent left pleural effusion. POSTOPERATIVE DIAGNOSIS: History of breast cancer, status post previous subxiphoid pericardial window and right tube thoracostomy, recurrent left pleural effusion. NAME OF OPERATION: Bronchoscopy, left thoracoscopy with evacuation of pleural effusion, left parietal pleural biopsy, complete decortication, chemical pleurodesis with Betadine, intercostal nerve block. SURGEON: Yin Young M.D. RESIDENT SURGEON: Dr. Efraín Price. AIR POLLUTION AUDITOR: Jourdan Aviles. ANESTHESIA: General endotracheal. FINDINGS: The patient was noted to have benign appearing effusion with at least several liters in the left chest. I did not see any obvious evidence of malignancy. There is mild trapping of the left lower lobe. We were able to get the lung completely decorticated and fully re-expanded. The fluid was sent for cultures and cytology. Parietal pleura sent to Pathology. We re-looked at the pericardium which initially looked like there may be some fluid within the pericardial space. Attempts of trying to open the pericardium showed the pericardium adhesed to the epicardial surface of the heart. We did not explore this given the uncertainty as to if there was any significant fluid and where the pockets were located. Pericardium was definitely thickened and abnormal. Visually, there was no evidence of malignancy. Previous studies had also shown no evidence of malignancy. DETAILS OF OPERATION: After adequate general anesthesia, the patient was intubated. Bronchoscopy was performed noting no endobronchial lesions. Mucous secretions were evacuated. A left-sided double-lumen endotracheal tube was then placed. The patient then positioned in the right lateral decubitus position. The left chest was prepped and draped in a routine sterile fashion. A small incision was made in the lower intercostal space. Through this single incision site, the fluid was evacuated. The left parietal pleura was biopsied. We saw no obvious evidence of metastatic disease anywhere in the pleural space. Some fibrinous material was removed from the chest cavity. The lung was decorticated, opening up the fissure and getting both lobes to fully re-expand. Given the recurrent nature of the pleural effusion and her persistent problems with recurrent effusions, we then decided to place Betadine in the chest cavity and perform a chemical pleurodesis. A 20 mL of Betadine with 80 mL of saline was placed in the chest cavity. A 32-English chest tube was placed. An intercostal nerve block was performed. The lung was then re-expanded, getting good reexpansion of both lobes of the lung. Single trocar sites were closed with running Record Of Operation [address] [address] NAME: DAVID RAMOS : 40 STATUS : ADM IN [facility]#: [id number] AGE: 75 ADM/REG DATE : 09/02/16 MR#: [id number] REPORT SERV DATE: 09/02/16 DICTATED BY: YIN YOUNG JR. DATE: 09/02/16 REPORT STATUS : Draft TRANSCRIBED BY: MODL DATE: 09/02/16 Vicryl sutures. The skin was closed with running monofilament suture. A Dermabond dressing was applied, and the procedure was terminated at this point. The patient tolerated the procedure well and taken back to the recovery room in stable condition. DAVIS/STEPH Yin Young Jr., M.D. / [id number] CC: Sonia Nation Jr., M.D. Derek W Holland, M.D.
--- NOTE | ~2016-09-02 | DS ---
Discharge Summary [facility] [address] [place]. [address] NAME: DAVID RAMOS : 40 STATUS : DIS IN PAT#: [id number] AGE: 75 ADM/REG DATE : 09/02/16 MR#: [id number] REPORT SERV DATE: 09/11/16 DICTATED BY: YIN VIERA JR. DATE: 09/10/16 REPORT STATUS : Draft TRANSCRIBED BY: STEPH DATE: 09/10/16 Data Collection from hospitalization DISCHARGE DIAGNOSIS(ES): 1. Large circumferential pericardial effusion. 2. Bilateral pleural effusion. 3. Coronary artery disease, status post stenting. 4. History of breast cancer treated with right lobectomy and chemo and radiation. 5. History of depression and anxiety. CONSULTATIONS: None. PROCEDURES PERFORMED: Bronchoscopy, left thoracoscopy with evacuation of pleural effusion, left parietal pleural biopsy, complete decortication, chemical pleurodesis with Betadine, intercostal nerve block, 09/02/2016. PATHOLOGY: 1. Left parietal pleural biopsy within normal limits. No tumor seen. 2. Pleural fluid left cytology smears ThinPrep, cell block negative for atypical or malignant cells. MEDICATIONS: Vitamin C 1000 mg every morning, aspirin 81 mg at bedtime, Lipitor 40 mg at bedtime, vitamin D3 of 1000 units every morning, CoQ10 100 mg every morning, glucosamine chondroitin one every morning, Plavix 75 mg every morning, Imdur 60 mg every morning, Mag-Ox 400 mg at bedtime, melatonin 5 mg at bedtime, Lopressor 12.5 mg twice daily, Zoloft 75 mg every morning, vitamin A 8000 units every morning, one every morning, vitamin B one every morning, flaxseed oil 1200 mg at bedtime, melatonin one spray at bedtime, Nitrostat 0.4 mg sublingually as needed, alprazolam 0.25 mg daily as needed, Flonase nasal spray two sprays each nostril daily as needed, FiberCon one tablet daily, Refresh one drop each eye three times daily as needed, Ultram 50 mg every six hours as needed, and tramadol 50 mg one or two every four to six hours as needed. CONDITION AT DISCHARGE: Upon discharge, she did appear to be doing well and had no complaints. DISPOSITION: She had been discharged home to continue a regular diet with activity as discussed. She was to follow up with me in the office in three to four weeks and was to call for the appointment. She was also to follow up with [facility] on 09/24/2016. HOSPITAL COURSE: This 75-year-old female presented to her primary care physician with shortness of breath. She was status post right lumpectomy and recently completed radiation therapy for breast cancer. She had gone to the [facility] and described at that time that she had progressively become fatigued and short of breath. Upon return to the [facility], she had presented to her primary care physician and was sent to the hospital for further evaluation including a CT of the chest, which demonstrated a small left pleural effusion, a moderate right pleural effusion, and a moderate-sized circumferential pericardial effusion. She demonstrated no signs of tamponade physiology, and we were asked to see the patient in Discharge Summary [address] [place]. [address] NAME: DAVID RAMOS : 40 STATUS : DIS IN PAT#: [id number] AGE: 75 ADM/REG DATE : 09/02/16 MR#: [id number] REPORT SERV DATE: 09/11/16 DICTATED BY: YIN VIERA JR. DATE: 09/10/16 REPORT STATUS : Draft TRANSCRIBED BY: STEPH DATE: 09/10/16 consultation for pericardial window. She was admitted for this and further treatment. Upon admission to the hospital, she had been taken to the operating room where she did undergo the above procedure. She tolerated this well and was transferred to the recovery room. On postop day #1, she was afebrile and her vital signs were stable. She did appear to be doing well postoperatively. The chest tube was still on suction. On postop day #2, she did continue to do well and had no new complaints. Her chest tube was still in place. She was continued on supportive care. On postop day #3, she did remain in stable condition and did have an adequate urinary output. Her chest tube was removed and she continued to do well and was then discharged with the above instructions. Information collected by: Gayathri Brown. I submit the above information as my discharge summary. MCKENNA/STEPH Yin Viera Jr., M.D. / [id number] CC: Yin Viera Jr., M.D.
[~2016-09-02 10:23] MED LIST changes: +ADVIL PO; +ULTRAM50 PO
[2016-09-02 10:45] LABS: BASOPHILS 0.2 %; BASOPHILS ABSOLUTE 0.02 10/3/uL (0.0-0.16); EOSINOPHILS 1.2 %; HEMATOCRIT 35.1 % (36.0-48.0); HEMOGLOBIN 11.5 g/dL (12.0-16.0); IMMATURE GRANULOCYTES 0.2 %; IMMATURE GRANULOCYTES ABSOLUTE 0.02 10/3/uL (0.0-0.11); LYMPHOCYTES 8.5 %; LYMPHOCYTES ABSOLUTE 0.73 10/3/uL (0.67-4.30); MEAN CORPUS HGB CONC 32.8 g/dL (32.0-36.0); MEAN CORPUSCULAR HEMOGLOB 27.6 pg (26.0-34.0); MEAN PLATELET VOLUME 10.6 fL (9.2-13.0); MONOCYTES 5.5 %; MONOCYTES ABSOLUTE 0.47 10/3/uL (0.21-1.20); NEUTROPHILS 84.4 %; NEUTROPHILS ABSOLUTE 7.27 10/3/uL (2.02-8.40); PLATELET COUNT 353 10/3/uL (150-400); RBC DISTRIBUTION WIDTH 14.9 % (12.0-16.0); RED CELL COUNT 4.17 10/6/uL (4.0-5.6)
[2016-09-02 10:46] LABS: MANUAL DIFF NO %; MEAN CORPUSCULAR VOLUME 84.2 fL (80-100); WHITE BLOOD CELLS 8.6 10/3/uL (4.5-10.5)
[2016-09-02 10:50] LABS: INTERNATIONAL NORMAL RATI 1.1 UNITS (-); PROTIME (NOT ORD) 14.4 SEC (12.0-14.5)
[2016-09-02 10:56] LABS: BUN (BLOOD UREA NITROGEN) 15 MG/DL (6-23); CALCIUM, SERUM 9.3 MG/DL (8.5-10.4); CHLORIDE, SERUM 105 MMOL/L (96-112); CO2 (CARBON DIOXIDE) 29 MMOL/L (24-34); CREATININE 0.86 MG/DL (0.55-1.02); GFR AFRICAN AMERICAN 77 ML/MIN (>=60); GFR NON AFRICAN AMERICAN 66 ML/MIN (>=60); GLUCOSE, SERUM 108 MG/DL (60-99); POTASSIUM, SERUM 3.8 MMOL/L (3.5-5.3); SODIUM, SERUM 141 MMOL/L (135-148)
[2016-09-03 04:17] LABS: BASOPHILS 0.2 %; BASOPHILS ABSOLUTE 0.01 10/3/uL (0.0-0.16); EOSINOPHILS 0.2 %; EOSINOPHILS ABSOLUTE 0.01 10/3/uL (0.0-0.53); HEMATOCRIT 32.3 % (36.0-48.0); HEMOGLOBIN 10.2 g/dL (12.0-16.0); IMMATURE GRANULOCYTES 0.2 %; IMMATURE GRANULOCYTES ABSOLUTE 0.01 10/3/uL (0.0-0.11); LYMPHOCYTES 8.3 %; LYMPHOCYTES ABSOLUTE 0.55 10/3/uL (0.67-4.30); MEAN CORPUS HGB CONC 31.6 g/dL (32.0-36.0); MEAN CORPUSCULAR HEMOGLOB 27.3 pg (26.0-34.0); MEAN CORPUSCULAR VOLUME 86.6 fL (80-100); MEAN PLATELET VOLUME 10.5 fL (9.2-13.0); MONOCYTES 6.6 %; MONOCYTES ABSOLUTE 0.44 10/3/uL (0.21-1.20); NEUTROPHILS 84.5 %; NEUTROPHILS ABSOLUTE 5.64 10/3/uL (2.02-8.40); PLATELET COUNT 277 10/3/uL (150-400); RBC DISTRIBUTION WIDTH 14.8 % (12.0-16.0); RED CELL COUNT 3.73 10/6/uL (4.0-5.6); WHITE BLOOD CELLS 6.7 10/3/uL (4.5-10.5)
[2016-09-03 04:20] LABS: MANUAL DIFF NO %
[2016-09-03 04:29] LABS: CHLORIDE, SERUM 106 MMOL/L (96-112); CO2 (CARBON DIOXIDE) 28 MMOL/L (24-34); CREATININE 1.01 MG/DL (0.55-1.02); GFR AFRICAN AMERICAN 63 ML/MIN (>=60); GFR NON AFRICAN AMERICAN 54 ML/MIN (>=60); SODIUM, SERUM 142 MMOL/L (135-148)
[2016-09-03 04:31] LABS: BUN (BLOOD UREA NITROGEN) 19 MG/DL (6-23); CALCIUM, SERUM 8.2 MG/DL (8.5-10.4); GLUCOSE, SERUM 162 MG/DL (60-99); POTASSIUM, SERUM 4.8 MMOL/L (3.5-5.3)
[2016-09-05] MEDS ORDERED: MELATONIN5 M1 PO (09:01)
== END 2016-09-05 11:01 | disposition home or self-care (01) | DRG 164 ==
LOC: SDC/OF 10:23 → PACU 15:15 → 5NO 18:37
PROVIDERS: Thoracic Surgery (Cardiothoracic Vascular Surgery)
PROC: 3E0L3GC Introduction of Other Therapeutic Substance into Pleural Cavity, Percutaneous Approach (ICD-10-PCS; 2016-09-02)
PROC: 3E0T3BZ Introduction of Anesthetic Agent into Peripheral Nerves and Plexi, Percutaneous Approach (ICD-10-PCS; 2016-09-02)
PROC: 0BJ08ZZ Inspection of Tracheobronchial Tree, Via Natural or Artificial Opening Endoscopic (ICD-10-PCS; 2016-09-02)
PROC: 0W9D4ZZ Drainage of Pericardial Cavity, Percutaneous Endoscopic Approach (ICD-10-PCS; principal; 2016-09-02 11:00)
PROC: 0BDP4ZZ Extraction of Left Pleura, Percutaneous Endoscopic Approach (ICD-10-PCS; 2016-09-02 11:00)
DX: J90 Pleural effusion, not elsewhere classified (principal); I31.3 Pericardial effusion (noninflammatory); Z85.3 Personal history of malignant neoplasm of breast; Z95.5 Presence of coronary angioplasty implant and graft
CPT/HCPCS: 36415; 71020; 80048; 82962; 85025; 85610; 86850; 86900; 86901; 87015; 87070; 87075; 87102; 87116; 87205; 87641; 88112; 88305; 94640; A9270-GY; J0610; J0690; J2250; J2270; J2370; J2405; J2710; J2795; J3010